=== PATIENT | female | born 1955 | race Caucasian/White ===

== ENCOUNTER 2022-12-13 06:24 | Day surgery (SDC) | payer MEDICARE ==
[2022-12-11 11:11] VITALS: BMI 21.7
[2022-12-13] MEDS ORDERED: fentaNYL 50 mcg/mL 1 mL Vial ONE (06:32)
[2022-12-13] MEDS ORDERED: Midazolam HCl 2 mg/2 ml Vial ONE (06:32)
[2022-12-13] MEDS ORDERED: Cyclopentolate 1% Opth Drop 2 ML BOT ONE (06:47)
[2022-12-13] MEDS ORDERED: Phenylephrine 2.5% Ophth Soln 5 ML BOT ONE (06:47)
[2022-12-13] MEDS ORDERED: EPINEPHrine 0.3 MG in Ophthalmic Irrigation Solution 500 ML IRR SCH (07:15)
[2022-12-13] MEDS ORDERED: PROPOFOL 200 MG/20 ML VIAL ONE (07:48)
[2022-12-13] MEDS ORDERED: Maxitrol 0.1% Opth Oint 3.5 GM TUBE ONE (07:48)
[2022-12-13] MEDS ORDERED: Lidocaine 4% PF 5 ML AMP ONE (07:48)
[2022-12-13] MEDS ORDERED: Triamcinolone 40 MG/ML VIAL ONE (07:48)
[2022-12-13] MEDS ORDERED: Bupivacaine 0.75% 10 ML VIAL ONE (07:48)
[2022-12-13] MEDS ORDERED: CEFAZOLIN 1 GM VIAL ONE (07:48)
[2022-12-13] MEDS ORDERED: Lidocaine 1% PF 5 ML VIAL ONE (07:48)
== END 2022-12-13 09:24 | disposition home or self-care (01) ==
LOC: SDC 06:24
PROVIDERS: ATTEND Ophthalmology Retina Specialist
PROC: 08T43ZZ Resection of Right Vitreous, Percutaneous Approach (ICD-10-PCS; principal; 2022-12-13)
PROC: 08NE3ZZ Release Right Retina, Percutaneous Approach (ICD-10-PCS; 2022-12-13)
PROC: 08QE3ZZ Repair Right Retina, Percutaneous Approach (ICD-10-PCS; 2022-12-13)
DX: H43.311 Vitreous membranes and strands, right eye (principal); H33.321 Round hole, right eye; Z98.41 Cataract extraction status, right eye; Z98.42 Cataract extraction status, left eye; Z96.1 Presence of intraocular lens
CPT/HCPCS: 67041; J3010; J0171; J0690; J2250; J2704; J3301; J3490

== ENCOUNTER 2024-06-18 06:27 | Day surgery (SDC) | payer MEDICARE, BC ==
[2024-06-17 14:24] VITALS: BMI 23.0
[~2024-06-18 06:27] MED LIST: EPINEPHrine 0.3 MG in Ophthalmic Irrigation Solution 500 ML IRR SCH
[2024-06-18] MEDS ORDERED: Lidocaine 2% PF 5 ML VIAL ONE (06:28)
[2024-06-18] MEDS ORDERED: GLYCOPYRROLATE/PF 0.2 MG/ML VIAL ONE (06:28)
[2024-06-18] MEDS ORDERED: PHENYLephrine 2.5% Ophth Soln 15 ml Bottle ONE (06:34)
[2024-06-18] MEDS ORDERED: Cyclopentolate 1% Opth Drop 2 ML BOT ONE (06:34)
[2024-06-18] MEDS ORDERED: PROPOFOL 20 ML ONE (06:46)
[2024-06-18] MEDS ORDERED: Midazolam HCl 2 mg/2 ml Vial ONE (06:46)
[2024-06-18] MEDS ORDERED: fentaNYL 50 mcg/mL 1 mL Vial ONE (06:46)
[2024-06-18] MEDS ORDERED: Ondansetron PF 4 MG/2 ML Vial ONE (07:11)
[2024-06-18] MEDS ORDERED: CEFAZOLIN 1 GM VIAL ONE (07:24)
[2024-06-18] MEDS ORDERED: Lidocaine 1% PF 5 ML VIAL ONE (07:24)
[2024-06-18] MEDS ORDERED: Lidocaine 4% PF 5 ML AMP ONE (07:24)
[2024-06-18] MEDS ORDERED: Maxitrol 0.1% Opth Oint 3.5 GM TUBE ONE (07:24)
[2024-06-18] MEDS ORDERED: Bupivacaine 0.75% 10 ML VIAL ONE (07:24)
[2024-06-18] MEDS ORDERED: Dexamethasone 4 mg/ml Vial ONE ×2 (07:24→07:31)
== END 2024-06-18 08:23 | disposition home or self-care (01) ==
LOC: SDC 06:27
PROVIDERS: ATTEND Ophthalmology Retina Specialist
PROC: 08T53ZZ Resection of Left Vitreous, Percutaneous Approach (ICD-10-PCS; principal; 2024-06-18)
DX: H43.312 Vitreous membranes and strands, left eye (principal)
CPT/HCPCS: 67041; J0171; J0690; J1100; J2250; J2405; J2704; J3010; J3490 ×2